=== PATIENT | male | born 1950 | race Caucasian/White ===

== ENCOUNTER → 2024-02-03 | Outpatient (CLI) | payer MEDICARE ==
[~2024-02-03] MED LIST: ASCO500 PO; ASPI81CH PO; CHOL10002 PO; CYAN500 PO; NIACIN PO; OMEGA-3 FLAXS1000 MG PO; Prinivil10 MG PO; Red Yeast Rice600 MG PO
[2024-02-03 18:03] LABS: Percent Saturation 27.9 % (20.0-50.0)
== END ==
LOC: LAB 13:10 → LAB SHORT 13:10
PROVIDERS: Family Medicine
DX: D64.9 Anemia, unspecified (principal)
CPT/HCPCS: 36415; 82607; 82728; 82746; 83540; 83550

== ENCOUNTER → 2024-02-09 | Outpatient (CLI) | payer MEDICARE ==
[2024-02-09 15:34] LABS: Source, Urine Voided
[2024-02-09 17:00] LABS: Appearance, Urine Clear (Clear); Bilirubin, Urine Neg (Neg); Blood, Urine Neg (Neg); Color, Urine Yellow (P-Yellow); Glucose Qualitative, Urine Neg (Neg); Ketones, Urine Neg (Neg); Leukocyte Esterase, Urine Neg (Neg); Nitrite, Urine Neg (Neg); Protein, Urine Neg (Neg); Specific Gravity, Urine 1.015 (1.003-1.022); Urobilinogen, Urine NORM (Normal)
[2024-02-10 11:08] LABS: Stool Occult Bld Immuno 1 Positive (NEGATIVE)
== END ==
LOC: LAB SHORT 15:25 → LAB 15:25
PROVIDERS: Family Medicine
DX: D64.9 Anemia, unspecified (principal)
CPT/HCPCS: 81003; G0328

== ENCOUNTER → 2024-04-15 | Outpatient (CLI) | payer MEDICARE ==
[2024-04-15 13:22] LABS: BASOPHILS ABSOLUTE AUTO 0.03 K/mm3 (0.00-0.23); BASOPHILS PERCENT AUTO 0 % (0-2); EOSINOPHILS PERCENT AUTO 3 % (0-6); Hematocrit 39.6 % (37.0-53.0); Hemoglobin 13.1 g/dL (13.5-17.5); IMMATURE GRAN ABSOLUTE AUTO 0.02 K/mm3 (0.00-0.10); IMMATURE GRAN PERCENT AUTO 0 % (0-1); LYMPHOCYTES ABSOLUTE AUTO 0.99 K/mm3 (0.84-5.20); LYMPHOCYTES PERCENT AUTO 14 % (21-46); MONOCYTES ABSOLUTE AUTO 0.64 K/mm3 (0.16-1.47); MONOCYTES PERCENT AUTO 9 % (4-13); Mean Corpuscular HGB 31.6 pg (26.0-34.0); Mean Corpuscular HGB Conc 33.1 g/dL (31.5-36.5); Mean Corpuscular Volume 96 fL (80-100); Mean Platelet Volume 10.7 fL (9.1-12.4); NEUTROPHILS ABSOLUTE AUTO 5.29 K/mm3 (1.96-9.15); NEUTROPHILS PERCENT AUTO 74 % (41-73); Platelet Count 212 K/mm3 (150-400); RDW Coefficient Variation 13.6 % (11.7-14.2); Red Blood Cell Count 4.14 M/mm3 (4.30-5.90); White Blood Cell Count 7.17 K/mm3 (4.00-11.30)
[2024-04-15 13:37] LABS: Albumin, Blood 3.7 g/dL (3.4-5.0); Albumin/Globulin Ratio 1.1 (0.8-1.8); Bilirubin, Total 0.6 mg/dL (0.1-1.0); Bun/Creatinine Ratio 19.9 (12.0-20.0); Calcium, Blood 8.9 mg/dL (8.5-10.1); Creatinine, Blood 0.96 mg/dL (0.60-1.20); Globulin, Blood 3.4 g/dL (2.2-4.0); Potassium, Blood 4.1 mmol/L (3.5-5.5); Total Protein, Blood 7.1 g/dL (6.4-8.2)
== END | disposition home or self-care (01) ==
LOC: LAB SHORT 12:03 → LAB 12:03
PROVIDERS: Physician Assistant
DX: M79.89 Other specified soft tissue disorders (principal); R35.0 Frequency of micturition
CPT/HCPCS: 80053; 85025; 85379; 87086

== ENCOUNTER 2024-06-23 13:15 | Emergency (ER) | payer MEDICARE ==
[~2024-06-23] VITALS: Ht 182.9 cm; Wt 90.7 kg
[2024-06-23 14:44] LABS: Base Excess Venous 3.1 mmol/L; PCO2 Venous 40.8 mmHg (38-42); pH Blood Venous 7.44 (7.34-7.37)
[2024-06-23] MEDS ORDERED: ESCITALOPRAM OXA5 MG PO ×2 (15:10→17:06)
[2024-06-23] MEDS ORDERED: DONEPEZIL HCL10 M1 PO (15:10)
[2024-06-23] MEDS ORDERED: HYDCHL25 PO (15:10)
[2024-06-23] MEDS ORDERED: TRAZ50 PO (15:10)
[2024-06-23] MEDS ORDERED: OLANZAPINE5 M1 PO (15:11)
[2024-06-23] MEDS ORDERED: ABILIFY5 MG PO (15:11)
[2024-06-23] MEDS ORDERED: OMEP20ER PO (15:11)
[2024-06-23 15:17] LABS: Albumin, Blood 3.7 g/dL (3.4-5.0); Albumin/Globulin Ratio 1.3 (0.8-1.8); Bilirubin, Total 0.5 mg/dL (0.1-1.0); Calcium, Blood 9.3 mg/dL (8.5-10.1); Creatinine, Blood 0.92 mg/dL (0.60-1.20); Globulin, Blood 2.9 g/dL (2.2-4.0); Magnesium, Blood 2.1 mg/dL (1.6-2.4); Potassium, Blood 4.8 mmol/L (3.5-5.5); Thyroid Stimulating Hormone 1.11 uIU/mL (0.360-4.800); Total Protein, Blood 6.6 g/dL (6.4-8.2)
[2024-06-23 15:21] LABS: Influenza A, PCR NEGATIVE (NEGATIVE); Influenza B, PCR NEGATIVE (NEGATIVE); Resp Syncytial Virus, PCR NEGATIVE (NEGATIVE); SARS-Cov-2 (COVID-19) PCR, MMC NEGATIVE (NEGATIVE)
[2024-06-23 15:25] LABS: BASOPHILS ABSOLUTE AUTO 0.03 K/mm3 (0.00-0.23); BASOPHILS PERCENT AUTO 0 % (0-2); EOSINOPHILS ABSOLUTE AUTO 0.08 K/mm3 (0.00-0.68); EOSINOPHILS PERCENT AUTO 1 % (0-6); Hematocrit 35.6 % (37.0-53.0); Hemoglobin 12.2 g/dL (13.5-17.5); IMMATURE GRAN ABSOLUTE AUTO 0.01 K/mm3 (0.00-0.10); IMMATURE GRAN PERCENT AUTO 0 % (0-1); LYMPHOCYTES ABSOLUTE AUTO 0.77 K/mm3 (0.84-5.20); LYMPHOCYTES PERCENT AUTO 11 % (21-46); MONOCYTES ABSOLUTE AUTO 0.47 K/mm3 (0.16-1.47); MONOCYTES PERCENT AUTO 7 % (4-13); Mean Corpuscular HGB 32.4 pg (26.0-34.0); Mean Corpuscular HGB Conc 34.3 g/dL (31.5-36.5); Mean Corpuscular Volume 94 fL (80-100); Mean Platelet Volume 10.2 fL (9.1-12.4); NEUTROPHILS ABSOLUTE AUTO 5.83 K/mm3 (1.96-9.15); NEUTROPHILS PERCENT AUTO 81 % (41-73); Platelet Count 193 K/mm3 (150-400); RDW Coefficient Variation 13.3 % (11.7-14.2); RDW Standard Deviation 46.7 fL (35.1-46.3); Red Blood Cell Count 3.77 M/mm3 (4.30-5.90); White Blood Cell Count 7.19 K/mm3 (4.00-11.30)
[2024-06-23] MEDS ORDERED: OLANZapine 10 MG Vial IM ONE (15:45)
[2024-06-23] MEDS ORDERED: LORazepam 2 MG/ML 1ML Injection IV ONE (15:55)
[2024-06-23] MEDS ORDERED: HYDROCHLOROTH12.5 MG PO (17:01)
[2024-06-23] MEDS ORDERED: Selenomax200 MCG PO (17:02)
[2024-06-23] MEDS ORDERED: DERMACINRX FOL1 EAC2 PO (17:02)
[2024-06-23] MEDS ORDERED: ZINC50 M3 PO (17:03)
[2024-06-23] MEDS ORDERED: MAGNESIUM250 M1 PO (17:03)
[2024-06-23] MEDS ORDERED: FISH OIL 1,0001 EA10 PO (17:04)
[2024-06-23] MEDS ORDERED: TURMERIC500 M2 PO (17:04)
[2024-06-23] MEDS ORDERED: PROBIOTIC1 EA13 PO (17:05)
[2024-06-23] MEDS ORDERED: RED YEAST RICE55 MG PO (17:05)
[2024-06-23] MEDS ORDERED: DONE10 PO (17:06)
[2024-06-23] MEDS ORDERED: OLAN2.5 PO (17:06)
[2024-06-23] MEDS ORDERED: VITAMIN B122500 MC1 PO (17:06)
[2024-06-23] MEDS ORDERED: ABILIFY MYCITE5 M2 PO (17:07)
[2024-06-23] MEDS ORDERED: MELATONIN10 M3 PO (17:08)
[2024-06-23] MEDS ORDERED: LORazepam 2 MG/ML 1ML Injection IV PRN (21:15)
[2024-06-24 01:00] VITALS: BP 139/86
[2024-06-24] MEDS ORDERED: Ketorolac Tromethamine 30mg Vial IV ONE (08:35)
[2024-06-24] MEDS ORDERED: Ativan1 MG PO (09:57)
[2024-06-29] MEDS ORDERED: LISI5 PO (02:19)
[2024-06-29] MEDS ORDERED: OLAN5 PO (02:20)
== END 2024-06-24 14:32 | disposition home or self-care (01) ==
LOC: ER 13:15
PROVIDERS: Student in an Organized Health Care Education/Training Program
DX: G31.83 Neurocognitive disorder with Lewy bodies (principal); F02.811 Dementia in other diseases classified elsewhere, unspecified severity, with agitation; I10 Essential (primary) hypertension; H91.93 Unspecified hearing loss, bilateral; Z97.4 Presence of external hearing-aid; Z79.82 Long term (current) use of aspirin; Z79.899 Other long term (current) drug therapy
CPT/HCPCS: 0241U; 70450; 80053; 82803; 83735; 84443; 85025; 93005; 93010; 96372-59; 96374; 96375; 96376; 99285-25; J1885; J2060